=== PATIENT | female | born 1955 | race Caucasian/White ===

== ENCOUNTER → 2017-10-09 | Outpatient (CLI) | payer BC ==
[~2017-10-09] MED LIST: IMTUNK
--- NOTE | 2017-10-09 14:23 | DIAGNOSTIC IMAGING REPORT ---
CHEST 2 VIEWS ROUTINE HISTORY: 62 years-old Female J18.9 acute cough and congestion COMPARISON: Chest radiograph 06/02/2008 TECHNIQUE: PA and lateral views of the chest FINDINGS: Cardiac mediastinal and hilar silhouettes are within normal limits. Prior median sternotomy with the third and fourth from the top sternotomy wires again noted to be fractured. Mild biapical pleural-parenchymal scarring without pneumothorax. Trace right pleural effusion with patchy alveolar opacities of the basal right lower lobe. Bones of the chest appear grossly intact. IMPRESSION: 1. Patchy alveolar opacities of the basal right lower lobe suggest pneumonia. 2. Trace right pleural effusion. The above report was generated using voice recognition software. It may contain grammatical, syntax or spelling errors. Electronically signed by: Quinten Quinteros M.D. 10/09/2017 2:22 PM Dictated Date/Time: 10/09/2017 2:20 PM
== END | disposition home or self-care (01) ==
LOC: C.RAD1850 13:59
PROVIDERS: ATTEND Student in an Organized Health Care Education/Training Program
DX: J18.9 Pneumonia, unspecified organism (principal)

== ENCOUNTER 2019-11-05 19:48 | Observation (INO) ==
[2019-11-05] MEDS ORDERED: SODIUM CHLORIDE 0.9% 1000ML 500 ML IV ONE (20:14)
--- NOTE | 2019-11-05 20:20 | Emergency Department Note ---
Impression & Plan Diffuse abdominal pain, BRBPR (bright red blood per rectum), Colitis ED Provider Note NAME: JET BO AGE: 64 SEX: F : 1955 ARRIVES VIA: Walk-In INFORMANT: [Patient] ED PROVIDER(S): [Renato Prado MD] CHIEF COMPLAINT: Rectal bleeding HISTORY OF PRESENT ILLNESS: The patient is a 64-year-old female presents the ER with rectal bleeding. The patient states that last night, she began having abdominal pain. The pain was a 6 constantly but she would have waves where the pain would be an 8/10. She was vomiting and had diarrhea. This morning, she noticed that she was having a lot of blood in the stool and now, she is just having bright red blood per rectum. She still has the abdominal pain. She is nauseated but has not vomited since last night. There has been no fever, no shortness of breath, no syncope, no lightheadedness. The patient does not have any urinary complaints. No bad food eaten, no sick contacts. The patient was seen earlier today in this ED and diagnosed with colitis by CT. She was offered a hospital stay but chose to go home. Since being home, she has had multiple bouts of bright red blood per rectum, she does not feel safe at home and is asking to stay in the hospital for further care. REVIEW OF SYSTEMS: See HPI for pertinent positives and negatives. A total of ten systems were reviewed and were otherwise negative. PMHx/PSHx: See Below SOCIAL HISTORY: See Below. PHYSICAL EXAM: GENERAL: Patient is in no acute distress. HEENT: No acute trauma, normocephalic atraumatic, mucous membranes moist, no vincent al congestion, no scleral icterus. NECK: No stridor, no adenopathy, no meningismus, trachea is midline. LUNGS: Clear to auscultation bilaterally, no wheeze, no rhonchi, breath sounds equal. HEART: Subtle systolic murmur, regular rate and rhythm. ABDOMEN: Soft, mildly diffusely tender, bowel sounds positive, no hernias, no peritonitis. EXTREMITIES: No cyanosis or edema, full range of motion of all the joints without pain or difficulty, no signs for acute trauma. NEUROLOGIC: Oriented x 3, no acute motor or sensory deficits, no focal weakness. SKIN: No rash, no jaundice, no diaphoresis. DIFFERENTIAL DIAGNOSIS: Diverticulosis, AVM, coagulopathy, colitis, inflammatory bowel disease, malignancy, Socorro-Gavin tear, esophagitis, peptic ulcer disease, variceal bleed, gastritis, epistaxis, fissure, hemorrhoids, as well as other pathologies. EMERGENCY DEPARTMENT COURSE/PROCEDURES: MEDICAL DECISION MAKING: There is no leukocytosis or concerning anemia. No coagulopathy. I did review the work-up from earlier today. The CT scan did show findings of colitis. The patient received IV saline for hydration. She is currently resting comfortably. The patient was here earlier today and diagnosed with colitis. Since being disc harged home, she has had multiple episodes of bright red blood per rectum. Her abdominal pain has continued. She does not feel safe at home. Hospitalization is warranted, observation/further work-up is indicated. I spoke to the patient, I talked with case management. The on-call hospitalist was consulted. Past Med/Surg History Medical History Sensorineural hearing loss (SNHL) of right ear with restricted hearing of left ear Sensorineural hearing loss of both ears Tinnitus of right ear Surgical History History of foot surgery 2008 History of knee replacement procedure of right knee 2000 History of open heart surgery 1974 History of repair of ACL 1998 Family History Family/Other Hearing loss Sinusitis Hypertension Cancer Social History current occupational status: retired Feels Safe at Home: Yes Smoking Status: Never smoker Hx Alcohol Use: No Hx Substance Use: No Allergies Allergies Allergy/AdvReac Type Severity Reaction Status Date / Time Sulfa (Sulfonamide Allergy Mild RASH/ITCH Unverified 11/05/19 09:54 Antibiotics) ON LEGS No Known Drug Allergies Allergy Verified 11/05/19 09:41 Home Meds Home Medications Medication Instructions Recorded Confirmed sumatriptan succinate [Imitrex] 100 mg PO UD PRN 11/05/19 11/05/19 Results & Data (ED) Vital Signs Vital Signs - 24 hr 11/05/19 19:53 11/05/19 21:36 11/05/19 22:28 Temperature 36.8 C Temperature Source Oral Pulse Rate 83 Pulse Rate [Finger] 78 77 Respiratory Rate 18 20 20 Respiratory Effort / Characteristics Non-Labored Spontaneous Non-Labored Spontaneous Non-Labored Spontaneous Respiratory Depth Normal Normal Normal Blood Pressure 129/85 Blood Pressure [Right Arm] 128/79 130/84 Blood Pressure Mean 99 Blood Pressure Mean [Right Arm] 95 99 Blood Pressure Position Sitting Pulse Oximetry 97 98 98 Oxygen Delivery Method Room Air Room Air Room Air Sepsis Recent Fever Within 48 Hours No Sepsis New/Unexplained Change in Mental Status No Sepsis Action Taken by Nursing No Action Required 11/05/19 23:40 Temperature Temperature Source Pulse Rate Pulse Rate [Finger] 68 Respiratory Rate 18 Respiratory Effort / Characteristics Non-Labored Spontaneous Respiratory Depth Normal Blood Pressure Blood Pressure [Right Arm] 144/85 H Blood Pressure Mean Blood Pressure Mean [Right Arm] 104 Blood Pressure Position Pulse Oximetry 98 Oxygen Delivery Method Room Air Sepsis Recent Fever Within 48 Hours Sepsis New/Unexplained Change in Mental Status Sepsis Action Taken by Longterm Medications Current Medication List: was personally reviewed by me Laboratory Data Attestation: I reviewed the patient's lab results. Result diagrams: 11/05/19 20:42 Lab Results 11/05/19 11/05/19 Range/Units 20:42 20:42 WBC 8.74 (4.8-10.8) K/uL RBC 4.52 (4.2-5.4) M/uL Hgb 13.2 (12.0-16.0) g/dL Hct 40.7 (37-47) % MCV 90.0 (80-100) fL MCH 29.2 (25-34) pg MCHC 32.4 (32-36) g/dL RDW Std Deviation 47.1 H (36.4-46.3) fL RDW Coeff of Chaparro 14.3 (11.5-14.5) % Plt Count 240 (130-400) K/uL MPV 9.3 (7.4-10.4) fL Immature Gran % (Auto) 0.3 % Neut % (Auto) 73.8 % Lymph % (Auto) 16.4 % Nolan % (Auto) 8.1 % Eos % (Auto) 1.3 % Baso % (Auto) 0.1 % Immature Gran # (Auto) 0.03 H (0.00-0.02) K/uL Neut # (Auto) 6.45 (1.4-6.5) K/uL Lymph # (Auto) 1.43 (1.2-3.4) K/uL Nolan # (Auto) 0.71 H (0.11-0.59) K/uL Eos # (Auto) 0.11 (0-0.5) K/uL Baso # (Auto) 0.01 (0-0.2) K/uL PT 10.8 (9.0-12.0) Seconds INR 1.0 (0.9-1.1) APTT 26.7 (21.0-31.0) Seconds PTT Ratio 1.0 Administered Medications Discontinued Medications Sodium Chloride (Nss 1000ml) 500 mls @ 999 mls/hr IV .Q31M ONE Stop: 11/05/19 20:44 Last Infusion: 11/05/19 21:17 Dose: 0 mls/hr Documented by: [id number] Admin: 11/05/19 20:40 Dose: 999 mls/hr Documented by: [id number] Blood Pressure Blood Pressure Findings: Elevated blood pressure Blood Pressure Disposition: further management by hospitalist Discharge Plan Visit Data Chief Complaint: Abdominal Pain Stated Complaint: ABD PAIN, BLEEDING ED Provider: Renato Prado Discharge Problem: Diffuse abdominal pain, BRBPR (bright red blood per rectum), Colitis Patient Disposition: Being Evaluated by Hospitalist Condition: Good Discharge Instructions Interventions: ED Discharge Assessment Last Done: 11/06/19 00:05 Forms Stand Alone Forms: Fired Up [employer] Prescriptions Prescriptions: No Action sumatriptan succinate [Imitrex] 100 mg tablet 100 mg PO UD PRN (Reason: Migraine Headache) RF: 0 Referrals Referrals: Thong Guitérrez MD [Primary Care Provider] -
[2019-11-05 20:52] LABS: Basophils # (auto) 0.01 K/uL (0-0.2); Basophils % (auto) 0.1 %; Eosinophils # (auto) 0.11 K/uL (0-0.5); Eosinophils % (auto) 1.3 %; Hematocrit (blood only) 40.7 % (37-47); Hemoglobin 13.2 g/dL (12.0-16.0); Immature Granulocytes # (auto) 0.03 K/uL (0.00-0.02); Immature Granulocytes % (auto) 0.3 %; Lymphocytes # (auto) 1.43 K/uL (1.2-3.4); Lymphocytes % (auto) 16.4 %; Mean Corpuscular Hemoglobin 29.2 pg (25-34); Mean Corpuscular Hgb Conc 32.4 g/dL (32-36); Mean Platelet Volume 9.3 fL (7.4-10.4); Monocytes # (auto) 0.71 K/uL (0.11-0.59); Monocytes % (auto) 8.1 %; Neutrophils # (auto) 6.45 K/uL (1.4-6.5); Neutrophils % (auto) 73.8 %; Platelet Count 240 K/uL (130-400); RDW Coefficient of Variation 14.3 % (11.5-14.5); RDW Standard Deviation 47.1 fL (36.4-46.3); Red Blood Count 4.52 M/uL (4.2-5.4); White Blood Count 8.74 K/uL (4.8-10.8)
[2019-11-05 21:03] LABS: Partial Thromboplastin Time 26.7 Seconds (21.0-31.0); Prothrombin Time 10.8 Seconds (9.0-12.0)
--- NOTE | 2019-11-06 00:17 | History & Physical Report ---
Date of Service November 06, 2019 Assessment & Plan (1) Abdominal pain: [age]-year-old woman past medical history of migraine headaches, here for rectal bleed Bright red blood per rectum Differential including diverticulitis, infectious colitis, inflammatory bowel disease, AVM, mass or polyp CT scan showing diffuse colitis, more than likely this is a infectious cause of her bleeding We will get stool studies, hold off on antibiotics at this point Rehydrate, half-normal saline at 80 mils an hour as well as p.o. intake Hemoglobin still within normal limit but did drop about a point and a half since first ED admission we will recheck CBC in a.m. unless she shows any karen signs of worsening bleeding Can get colonoscopy 2 weeks post resolution, up-to-date on screening colonoscopies, never any abnormalities detected per patient We will order 2 large-bore IVs, and type and screen just in case bleeding were to get worse Migraine headaches Continue sumatriptan from home DVT prophylaxis: Contraindicated in setting of bleed, will use SCDs F/E/N: N.p.o. half-normal saline 80 mils per hour Disposition: Admitting to [facility] for further monitoring supportive care and hemoglobin checks, likely infectious source awaiting stool culture results (2) Diarrhea: (3) BRBPR (bright red blood per rectum): (4) Diffuse abdominal pain: (5) BRBPR (bright red blood per rectum): (6) Colitis: History of Present Illness Chief Complaint: Rectal bleeding Primary Care Provider: Thong Gutiérrez MD Patient is a 64-year-old woman who is generally healthy with a past medical history significant for migraine headaches. Yesterday she started to notice some increasingly worsening abdominal cramping pain pain was located primarily on the lower aspect of her abdomen bilaterally worse on the left. She described the sensation as similar to labor. She felt like she had to have some diarrhea and she did go several times overnight last night she then presented to the emergency department because she developed bleeding and mixed with her diarrhea. Her drove her to the emergency department and she was evaluated her vitals have been within normal limits. CT was obtained showing evidence of colitis, hemoglobin within normal limits, and patient was discharged home. Patient had a decrease in her abdominal pain and diarrhea but continued to have a large amount of bleeding and decided to come back to emergency department about 2 hours later. Vital signs remained stable, hemoglobin dropped from 14.6- 13.2. Still some bright red blood per rectum. She denies any lightheadedness, palpitations, syncope, chest pain, shortness of breath, fevers, chills. She has been feeling well up until tonight, has no history of GI bleeds she estimates h er last colonoscopy was about 2 years ago at that time everything was normal she has never had an abnormal colonoscopy. Primary care doctor is Dr. Gutiérrez at [facility]. Has only eaten a few sips of Sprite and one cracker this evening Does not abuse tobacco alcohol or drugs, lives at home with patient is a full code Allergies Allergy/AdvReac Type Severity Reaction Status Date / Time Sulfa (Sulfonamide Allergy Mild RASH/ITCH Unverified 11/05/19 09:54 Antibiotics) ON LEGS No Known Drug Allergies Allergy Verified 11/05/19 09:41 Home Medications Home Medications Medication Instructions Recorded Confirmed Type sumatriptan succinate [Imitrex] 100 mg PO UD PRN 11/05/19 11/05/19 History Past Med/Surg History Medical History Sensorineural hearing loss (SNHL) of right ear with restricted hearing of left ear Sensorineural hearing loss of both ears Tinnitus of right ear Surgical History History of foot surgery 2009 History of knee replacement procedure of right knee 2000 History of open heart surgery 1974 History of repair of ACL 1998 Family History Family/Other Hearing loss Sinusitis Hypertension Cancer Social History current occupational status: retired Feels Safe at Home: Yes Smoking Status: Never smoker Hx Alcohol Use: No Hx Substance Use: No Review of Systems Review of Systems: Constitutional: No fevers chills sweats Eyes: No change in vision, ENMT: No recent cold symptoms upper respiratory symptoms, Respiratory: Patient breathing easily, no shortness of breath no cough Cardio: No chest pain no shortness of breath, no leg swelling beyond her normal baseline for her she wears compression socks GI: Hematochezia as above, no vomiting, no hematemesis, abdominal pain cramping and pressure as above : Urinating okay no hematuria Physical Exam Physical Exam: Constitutional: Resting in bed in mild distress, able to converse easily Eyes: Extraocular muscle movements intact bilaterally, pupils equal round reactive to light and accommodation bilaterally, anicteric sclerae Respiratory: Chest expansion equal, no increased work of breathing, regular rat e, lung sounds vesicular in all lung patel Cardiovascular: Heart sounds dual, regular rate regular rhythm, no murmurs rubs skips or gallops, 1+ pitting edema of the bilateral lower extremities, unchanged from chronic, peripheral pulses intact and equal bilaterally Gastrointestinal: Hyperactive bowel sounds, abdomen diffusely tender, most tender in left lower quadrant, no masses, abdomen is soft, does not appear to be perihepatic Skin: Warm dry and intact Results & Data Results & Data ([facility]) Vital Signs (Past 12 Hours) Vital Signs Temp Pulse Pulse Resp BP BP Pulse Ox 11/05/19 23:40 68 18 144/85 H 98 11/05/19 22:28 77 20 130/84 98 11/05/19 21:36 78 20 128/79 98 11/05/19 19:53 36.8 C 83 18 129/85 97 Code Status & VTE Plan VTE Prophylaxis Plan VTE Prophylaxis will be ordered: Yes Supervising Physician Co-Signing Physician Notes Attending addendum: I have physically seen this patient, have supervised the medical residents activities, and agree with the H&P unless as otherwise noted. Assessment and Plan: Descending/sigmoid colitis/hematochezia/BRBPR- NPO Send stool for culture, C. difficile. IV fluids, 1/2 NSS at 80 mils per hour. Consult gastroenterology. H&H every 6 hours. Zofran 4 mg IV every 6 hours as needed. Pantoprazole 40 mg IV daily Flagyl 500 mg IV every 8 hours Remainder of orders and notations as noted. Resident Activity Tracking Resident Involvement: Resident Care Provided Care Provided: Adult Hospital Medicine (1) Diarrhea Diarrhea type: unspecified type Qualified Code(s): R19.7 - Diarrhea, unspecified (2) Abdominal pain Abdominal location: left lower quadrant Qualified Code(s): R10.32 - Left lower quadrant pain
[2019-11-06] MEDS ORDERED: SODIUM CHLORIDE 0.45 % 1,000 ML IV SCH (00:25)
[2019-11-06] MEDS ORDERED: ONDANSETRON INJ 2 MG/ML 2 ML VIAL IV PRN (00:25)
[2019-11-06] MEDS ORDERED: SUMAtriptan succinate 100 MG TAB PO PRN (00:25)
[2019-11-06 01:09] LABS: Albumin Level 3.8 gm/dl (3.4-5.0); BUN Creatinine Ratio 10.7 (10-20); Calcium 8.9 mg/dl (8.5-10.1); Creatinine Clr Calc Pharmacy 79.1 ml/min; Est GFR (African American) 106.7; Est GFR (Non-African American) 92.1; Potassium 3.3 mmol/L (3.5-5.1)
[2019-11-06 01:20] LABS: Albumin Globulin Ratio 1.2 (0.9-2); Bilirubin,Total 0.6 mg/dl (0.2-1); Globulin 3.2 gm/dl (2.5-4.0)
[2019-11-06 06:16] LABS: Basophils # (auto) 0.01 K/uL (0-0.2); Basophils % (auto) 0.1 %; Eosinophils % (auto) 1.3 %; Hematocrit (blood only) 41.7 % (37-47); Hemoglobin 13.7 g/dL (12.0-16.0); Immature Granulocytes # (auto) 0.02 K/uL (0.00-0.02); Immature Granulocytes % (auto) 0.3 %; Lymphocytes % (auto) 20.5 %; Mean Corpuscular Hemoglobin 29.5 pg (25-34); Mean Corpuscular Hgb Conc 32.9 g/dL (32-36); Mean Corpuscular Volume 89.9 fL (80-100); Mean Platelet Volume 9.2 fL (7.4-10.4); Monocytes # (auto) 0.65 K/uL (0.11-0.59); Monocytes % (auto) 8.3 %; Neutrophils # (auto) 5.44 K/uL (1.4-6.5); Neutrophils % (auto) 69.5 %; Platelet Count 215 K/uL (130-400); RDW Coefficient of Variation 14.3 % (11.5-14.5); RDW Standard Deviation 46.9 fL (36.4-46.3); Red Blood Count 4.64 M/uL (4.2-5.4); White Blood Count 7.82 K/uL (4.8-10.8)
--- NOTE | 2019-11-06 14:38 | Family Medicine Progress Note ---
Date of Service November 06, 2019 Assessment & Plan (1) Abdominal pain: 64 yo F PMHx migraine headaches admitted for further workup of her acute GI bleeding. GIB: - Differential including diverticulosis/itis, infectious colitis, inflammatory bowel disease, AVM, mass or polyp. - CT scan showing diffuse colitis, more than likely this is a infectious cause of her bleeding. - C. diff negative, stool studies ordered and pending. - Last colonoscopy within the lat ten years was normal per patient. Cannot access this report. - Less likely inflammatory bowel disease as age onset would be abnormal in this case. - Hemoglobin continues to be stable and patient is without signs or symptoms of symptomatic anemia. - Have advanced to normal diet, d/c'ed fluids. - Will require colonoscopy in the near future in the event that this is infectious colitis. If cause continues to be unclear or acute worsening of symptoms will consult GI for colonoscopy. Migraine headaches: - Continue home sumatriptan. DVT prophylaxis: Contraindicated in setting of bleed, will use SCDs F/E/N: Full diet Disposition: Med/Surg (2) Diarrhea: (3) GI bleed: (4) Migraine: Admission and Anticipated Discharge Date Admission Date: November 05, 2019 Supervising Physician Co-Signing Physician Notes I personally examined the patient and verified all velez points of history and exam, discussed case, and agree with decision making with Dr Ennis. feeling better abdominal pain way less no further blood brother got sick as well - they ate macaroni salad and a ?stew w potatoes, carrots, shrimp and clams vitals noted nad heent nc at mmm breathing unlabored no accessory muscles good effort hematochezia, diarrhea -almost certainly infectious, especially since brother sick as well -bloody quality concerning for STEC - stool pending for this; if negative then might have just been inflammation unmasking another source for bleeding -- colo as outpt in near but not urgent future (also reassuring that it does not appear brother had blood) -- since concern on STEC will want to watch clinically and follow BMP / CBC until she's clearly resolved, although no appearance of HUS at this time. otherwise as above Subjective Without worsening of symptoms overnight. She reports some bright red blood in her stool this morning, but a significant decrease in her abdominal pain. Pain originally was crampy and described as "severe as contractions" across her entire lower abdomen, now is isolated to LLQ. Does not hurt more when she presses it. No nausea or vomiting, no fevers or chills. She recalls that 1-2 days prior to her developing diarrhea her father who lives with her also had diarrhea. Endorses a headache this morning, she thinks due to not having coffee for several days (normally drinks several cups a day). Review of Systems Constitutional: no fever, no chills and no malaise Respiratory: no cough and no dyspnea Cardiovascular: no chest pain, no palpitations and no edema Gastrointestinal: + abdominal pain (LLQ); no constipation and no diarrhea/loose stools Genitourinary: no dysuria and no hematuria Physical Exam Constitutional: WD/WN, vitals as above Respiratory: normal respiratory effort, lungs clear to auscultation Cardiovascular: RRR, no murmur, no edema Gastrointestinal (Abdomen): normal bowel sounds, soft, nontender, no hepatosplenomegaly (no increase in tenderness to palpation) Skin: no rashes, warm and dry Psychiatric: A+Ox3, euthymic affect Results & Data ([facility]) Vital Signs (Past 12 Hours) Vital Signs Temp Pulse Resp BP Pulse Ox 11/06/19 07:14 37.0 C 84 18 119/75 97 11/06/19 07:00 119/75 Resident Activity Tracking Resident Involvement: Resident Care Provided Care Provided: Adult Hospital Medicine (1) Diarrhea Diarrhea type: unspecified type Qualified Code(s): R19.7 - Diarrhea, unspecified (2) Abdominal pain Abdominal location: left lower quadrant Qualified Code(s): R10.32 - Left lower quadrant pain
[2019-11-06] MEDS ORDERED: SODIUM CHLORIDE 0.9% 1000ML 1,000 ML IV ONE (23:46)
--- NOTE | 2019-11-07 01:15 | Billing Data ---
Date of Service November 07, 2019 Coding Level of Care Code 69584 Initial Inpt Care Lvl 3
[2019-11-07 07:36] LABS: Basophils # (auto) 0.01 K/uL (0-0.2); Basophils % (auto) 0.2 %; Eosinophils % (auto) 3.2 %; Hemoglobin 13.4 g/dL (12.0-16.0); Immature Granulocytes # (auto) 0.01 K/uL (0.00-0.02); Immature Granulocytes % (auto) 0.2 %; Lymphocytes # (auto) 1.57 K/uL (1.2-3.4); Lymphocytes % (auto) 25.5 %; Mean Corpuscular Hemoglobin 29.6 pg (25-34); Mean Corpuscular Hgb Conc 32.7 g/dL (32-36); Mean Corpuscular Volume 90.7 fL (80-100); Mean Platelet Volume 9.1 fL (7.4-10.4); Monocytes # (auto) 0.52 K/uL (0.11-0.59); Monocytes % (auto) 8.4 %; Neutrophils # (auto) 3.85 K/uL (1.4-6.5); Neutrophils % (auto) 62.5 %; Platelet Count 196 K/uL (130-400); RDW Coefficient of Variation 14.3 % (11.5-14.5); Red Blood Count 4.52 M/uL (4.2-5.4); White Blood Count 6.16 K/uL (4.8-10.8)
[2019-11-07 08:09] LABS: BUN Creatinine Ratio 14.2 (10-20); Calcium 8.4 mg/dl (8.5-10.1); Creatinine Clr Calc Pharmacy 79.1 ml/min; Est GFR (African American) 106.7; Est GFR (Non-African American) 92.1; Potassium 3.6 mmol/L (3.5-5.1)
--- NOTE | 2019-11-07 09:20 | Discharge Summary ---
Date of Service November 07, 2019 Admission HPI Per Admitting Provider Patient is a 64-year-old woman who is generally healthy with a past medical history significant for migraine headaches. Yesterday she started to notice some increasingly worsening abdominal cramping pain pain was located primarily on the lower aspect of her abdomen bilaterally worse on the left. She described the sensation as similar to labor. She felt like she had to have some diarrhea and she did go several times overnight last night she then presented to the emergency department because she developed bleeding and mixed with her diarrhea. Her drove her to the emergency department and she was evaluated her vitals have been within normal limits. CT was obtained showing evidence of colitis, hemoglobin within normal limits, and patient was discharged home. Patient had a decrease in her abdominal pain and diarrhea but continued to have a large amount of bleeding and decided to come back to emergency department about 2 hours later. Vital signs remained stable, hemoglobin dropped from 14.6- 13.2. Still some bright red blood per rectum. She denies any lightheadedness, palpitations, syncope, chest pain, shortness of breath, fevers, chills. She has been feeling well up until tonight, has no history of GI bleeds she estimates her last colonoscopy was about 2 years ago at that time everything was normal she has never had an abnormal colonoscopy. Primary care doctor is Dr. Gutiérrez at [facility]. Has only eaten a few sips of Sprite and one cracker this evening Does not abuse tobacco alcohol or drugs, lives at home with patient is a full code Admission Exam Per Admitting Provider Constitutional: Resting in bed in mild distress, able to converse easily Eyes: Extraocular muscle movements intact bilaterally, pupils equal round reactive to light and accommodation bilaterally, anicteric sclerae Respiratory: Chest expansion equal, no increased work of breathing, regular rate, lung sounds vesicular in all lung patel Cardiovascular: Heart sounds dual, regular rate regular rhythm, no murmurs rubs skips or gallops, 1+ pitting edema of the bilateral lower extremities, unchanged from chronic, peripheral pulses intact and equal bilaterally Gastrointestinal: Hyperactive bowel sounds, abdomen diffusely tender, most tender in left lower quadrant, no masses, abdomen is soft, does not appear to be perihepatic Skin: Warm dry and intact Principal Diagnosis Colitis, suspected infectious source Discharge Exam Constitutional WD/WN, vitals as above Respiratory normal respiratory effort, lungs clear to auscultation Cardiovascular RRR, no murmur, no edema Gastrointestinal (Abdomen) Inspection/Auscultation: abdomen normal to inspection and normal bowel sounds Percussion/Palpation: + abdomen tender (minimal, LLQ) and abdomen soft; no guarding Skin no rashes, warm and dry Psychiatric A+Ox3, euthymic affect Discharge Data Allergies Allergy/AdvReac Type Severity Reaction Status Date / Time Sulfa (Sulfonamide Allergy Mild RASH/ITCH Unverified 11/05/19 09:54 Antibiotics) ON LEGS No Known Drug Allergies Allergy Verified 11/05/19 09:41 Consultations 11/05/19 20:27 ED Decision to Admit Stat Hospital Course (1) Abdominal pain: 64 yo F PMHx migraine headaches admitted for GI bleeding, likely 2/2 infectious colitis. For discharge home today. GIB: - Differential including diverticulosis/itis, infectious colitis, inflammatory bowel disease, AVM, mass or polyp. - CT scan showing diffuse colitis, more than likely this is a infectious cause of her bleeding. - Patient UTD on screening colonoscopies. - C. diff negative, stool studies ordered and pending. - > Informed me that her brother had GI illness and diarrhea at the same time as her symptoms started. They both went to a cookout with macaroni salad, stew, shrimp, clams. - > with significant improvement in her symptoms and no karen blood with BMs since yesterday morning. Tolerating normal diet well. - Labwork without findings suggestive of TTP/HUS. Hemoglobin stable this admission. - Less likely to be inflammatory bowel disease as age onset would be abnormal in this case. - Will require colonoscopy in the near, non-urgent future both for screening purposes and given that she has new GI symptoms. Migraine headaches: - Continue home sumatriptan. Disposition: home with self care. Will follow up with PCP and schedule colonoscopy. (2) Diarrhea: (3) GI bleed: (4) Migraine: Total Time Total Time Spent Total Time Spent (In Minutes): <30 Discharge Plan Discharge Items Patient Disposition: Home - Self-Care Reason For Visit: RECTAL BLEEDING,COLITIS Discharge Diagnosis: Infectious colitis Condition on Discharge: Good Activity: Per Instructions section Non-emergency contact: Primary Care Provider Call non-emergency contact if: your symptoms worsen and your temperature is above 101 Follow-up/Referrals: Thong Gutiérrez MD [Primary Care Provider] - Diet: Regular Addtl Attending Provider Instructions: You were admitted to the hospital for bloody bowel movements. During this time you were tested for several stool infections that can cause the symptoms you marquis d. We also monitored your blood counts to make sure that you were not becoming anemic from your blood loss. Your blood counts stayed stable, meaning that the amount of blood you lost was not enough that it would affect your blood count (therefore making you feel weak or dizzy). You also stopped having bloody bowel movements. We expect that given that your father had diarrhea 1-2 days prior to you getting it, that something that you ate caused a bacterial infection in your GI tract and was irritating enough that it caused a temporary bleed. It was not determined that you needed an urgent colonoscopy during your hospitalization. Since your bleeding has improved and your symptoms are better, we feel safe to discharge you home with the following recommendations: 1) You still have stool cultures pending. When people have E. coli or Shigella GI infections, we do not start antibiotics, but rather let the infection run its course. If these tests come back as positive you will be notified, however it will not change your treatment plan. 2) You should have a colonoscopy in the near future for screening purposes and to check for diverticulosis. You can contact the GI specialist of your choice with regard to scheduling this. You can discuss options for GI doctors in the area with your primary care doctor (Dr. Gutiérrez) if you need help finding one. 3) If your symptoms return, and you begin to feel dizzy, weak, short of breath, or have chest pain or palpitations, come back to the hospital right away. 4) Continue to practice good hand washing as often as possible, especially after using the bathroom, before prepping or eating meals, and upon return home from exposure outside. Pending Studies at Discharge: Yes Studies:: Stool cultures Stand-Alone Forms: My [employer], Smoking Cessation Medications and DC Order Prescriptions: Continued sumatriptan succinate [Imitrex] 100 mg tablet 100 mg PO UD PRN (Reason: Migraine Headache) RF: 0 Discharge Orders: Discharge Order (Routine); Ordered 11/07/19 Ordered By: Madeline Pacheco/Other Patient Handouts: Bleeding Gastrointestinal Admission Data Admit Date/Time: 11/05/19 22:18 Attending Provider: Luis Bennettit Provider: Sajan Elise Primary Care Provider: Thong Gutiérrez Other Providers: Avel Tobin Other Interventions: Discharge Summary Assessment (RN) Last Done: 11/07/19 11:01 ND Date/Time DO NOT enter until pt leaves facility: 11/07/19 12:00 Supervising Physician Co-Signing Physician Notes I personally examined the patient and verified all velez points of history and exam, discussed case, and agree with decision making with Dr Ennis. feeling pretty good overall - stomach somewhat churny at times after eating but able to eat well. no further diarrhea no blood. vitals noted nad heent nc at mmm breathing unlabored no accessory muscles good effort hematochezia, diarrhea -almost certainly infectious, especially since brother sick as well -bloody quality concerning for STEC - stool pending for this; if negative then might have just been inflammation unmasking another source for bleeding -- colo as outpt in near but not urgent future -- but regardless she has improved/clearly stable/ stable for discharge to home. otherwise as above Resident Activity Tracking Resident Involvement: Resident Care Provided Care Provided: Adult Hospital Medicine
--- NOTE | 2019-11-07 19:50 | Billing Data ---
Date of Service November 07, 2019 Coding Level of Care Code 91115 OBS Care - Discharge
== END 2019-11-07 12:00 | disposition home or self-care (01) ==
LOC: ED 19:48 → 3N 19:48 → SUATTDRO 22:18 → 3N 11-06 00:05